=== PATIENT | male | born 1980 | race Caucasian/White ===

== ENCOUNTER 2025-02-16 09:50 | Outpatient (CLI) | payer BC, SELFPAY | END 2025-02-16 09:51 | disposition home or self-care (01) | LOC: NFLDREF 23:19 | PROVIDERS: PCP Family Medicine; Referring Provider Family Medicine; Visit Provider Family Medicine | DX: R53.83 Other fatigue (principal); Z13.228 Encounter for screening for other metabolic disorders; Z13.29 Encounter for screening for other suspected endocrine disorder | CPT/HCPCS: 80053; 84403; 84443 ==